=== PATIENT | male | born 1990 | race Two or more races ===

== ENCOUNTER 2019-08-20 14:10 | Emergency (ER) | payer MEDICAID ==
[~2019-08-20] VITALS: Ht 180.3 cm; Wt 72.6 kg
[~2019-08-20 14:10] MED LIST: NORPTMEDS CO
[2019-08-20 14:26] VITALS: BP 155/84
== END 2019-08-20 15:30 ==
LOC: ER 14:10
DX: F19.10 Other psychoactive substance abuse, uncomplicated (principal); E86.0 Dehydration